=== PATIENT | male | born 1970 | race Caucasian/White ===

== ENCOUNTER 2023-10-06 20:20 | Emergency (ER) | payer OTHER ==
[2023-10-06] MEDS ORDERED: Sodium Chloride 0.9% 10 ML Syringe FLUSH PRN (20:44)
[2023-10-06] MEDS: Aspirin 81 MG Tab.Chew PO SCH (20:48)
[2023-10-06] MEDS: Nitroglycerin 0.4 MG Tab.SL SL ONE (20:48)
[2023-10-06 20:54] LABS: HEMATOCRIT 42.6 % (40.0-54.0); MEAN CORPUSCULAR HEMOGLOBIN 31.3 pg (27.0-32.0); MEAN CORPUSCULAR HGB CONC 32.9 g/dL (31.0-35.0); MEAN PLATELET VOLUME 10.7 fL (6.0-10.0); RED BLOOD CELL COUNT 4.47 M/uL (4.50-6.50); RED CELL DISTRIBUTION WIDTH 14.3 % (11.0-16.0)
[2023-10-06 21:14] LABS: A/G RATIO 1.1 (0.8-2.0); ALBUMIN 3.7 g/dL (3.4-5.0); ANION GAP 14.4 mmol/L (5.0-15.0); BILIRUBIN TOTAL 0.7 mg/dL (0.0-1.0); BUN/CREATININE RATIO 20.4 (6-25); CALCIUM 8.6 mg/dL (8.5-10.1); CARBON DIOXIDE,CO2 27.2 mmol/L (21.0-32.0); CREATININE 1.08 mg/dL (0.70-1.30); EST CRCL DRUG DOSING (CG) 94.54 mL/min; POTASSIUM,K 4.6 mmol/L (3.5-5.1); PROTEIN TOTAL,TP 7.2 g/dL (6.4-8.2); TROPONIN I HIGH SENSITIVITY 6.1 pg/ml (<=60.4)
[2023-10-06] MEDS: Metoprolol Tartrate 5 MG/5 ML SDV IVPUSH ONE (21:27)
[2023-10-06] MEDS ORDERED: Lisinopril 20 MG Tab PO SCH (22:15)
[2023-10-06] MEDS: Lisinopril 20 MG Tab PO ONE (22:30)
[2023-10-06] MEDS: hydrALAZINE 20 MG/ML SDV IVPUSH ONE (22:34)
[2023-10-06] MEDS: hydrALAZINE 20 MG/ML SDV ONE (22:38)
[2023-10-07] MEDS ORDERED: Lisinopril 20 MG Tab PO ONE (22:30)
== END 2023-10-07 01:05 | disposition home or self-care (01) ==
LOC: LB.ED 20:20
DX: R07.89 Other chest pain (principal); I16.0 Hypertensive urgency; Z79.82 Long term (current) use of aspirin; Z79.899 Other long term (current) drug therapy; Z88.0 Allergy status to penicillin
CPT/HCPCS: 36415; 71045; 80053; 83735; 83880; 84484; 85027; 85379; 93005; 93010; 96374; 96375; 99283; 99285-25; A9270-GY; J0360; J3490